=== PATIENT | male | born 1960 | race Caucasian/White ===

== ENCOUNTER 2023-11-16 08:28 | Outpatient (RCR) | payer SELFPAY | END 2023-11-16 23:59 | disposition home or self-care (01) | LOC: ROT 08:28 | PROVIDERS: ATTENDING PHYSICIAN Internal Medicine | DX: G20.C Parkinsonism, unspecified (principal); Z73.6 Limitation of activities due to disability ==

== ENCOUNTER → 2024-04-05 12:00 | Outpatient (REF) | payer OTHER, SELFPAY | LOC: DHSLP 12:00 | PROVIDERS: ATTENDING PHYSICIAN Internal Medicine | DX: G47.00 Insomnia, unspecified (principal); R06.83 Snoring | CPT/HCPCS: 95800 ==

== ENCOUNTER 2024-05-04 22:12 | Observation (INO) | payer OTHER, SELFPAY ==
[2024-05-04 18:53] VITALS: BP 146/87
[2024-05-04 19:40] LABS: % Basophils 0.3 % (0-2); % Eosinophils 0.2 % (0-6); % Immature Granulocytes 0.5 % (0-0.5); % Lymphocytes 4.9 % (20.5-51.1); % Neutrophils 88.1 % (42.2-75.2); Absolute Lymphocytes 0.3 10^3/uL (1.2-3.4); Absolute Monocytes 0.4 10^3/uL (0.1-0.6); Absolute Neutrophils 5.3 10^3/uL (1.4-6.5); Hematocrit 36.7 % (39.0-52.0); Hemoglobin 13.1 g/dL (13.0-18.0); Mean Corp Hgb Conc. 35.7 g/dL (33.0-37.0); Mean Corpuscular Hgb 28.9 pg (27.0-31.0); Mean Corpuscular Volume 80.8 fL (80.0-94.0); Mean Platelet Volume 9.1 fL (7.4-10.4); Nucleated Red Blood Cells % 0 % (-); Platelet Count 192 10^3/uL (130-400); Red Blood Cell Count 4.54 10^6/uL (4.70-6.10)
[2024-05-04 20:02] LABS: ALT (SGPT) < 10 U/L (0-50); AST (SGOT) 29 U/L (17-59); Albumin 4.1 g/dl (3.5-5.0); Alkaline Phosphatase 98 U/L (38-126); Blood Urea Nitrogen 10 mg/dl (9-20); Calcium 8.8 mg/dl (8.4-10.2); Carbon Dioxide 24 mmol/L (22-30); Chloride 93 mmol/L (98-107); Glucose 125 mg/dl (70-99); Lipase 33 U/L (23-300); Sodium 125 mmol/L (135-145); Total Bilirubin 0.7 mg/dl (0.2-1.3); Total Protein 6.3 g/dl (6.3-8.2); eGFR > 60.00
--- NOTE | 2024-05-04 20:22 | ED.GENMED ---
History of Present Illness
General
Chief Complaint: Abdominal Symptoms
Source: patient
Exam Limitations: none
Time Seen by Provider: 05/04/24 20:01
History of Present Illness
History of Present Illness:
This is a 64 year old male that comes in with c/o abd virus. States that he started on Wednesday night with nausea. States that yesterday he was able to keep some juice and water down. Today he had a 1/2 of toast and water and after lunch he started
with dry heaves. States that he was unable to keep his Sinemet down. States that he had a fever of 101 yesterday, headache and lightheadedness. States that his abd is sore from the dry heaves. Denies any chills, chest pain, SOB, diarrhea, vomiting,
urinary burning.
Past History
Past History
ED Past Medical History: GERD, HTN, Psychiatric (Anxiety) and Other (constipation, Parkinson's DJD, Tremors)
ED Past Surgical History: Appendectomy and Other (Dental implants)
Social History
Tobacco: Former smoker
Alcohol: None
Drug: None
Personal:
Living: with family
Employment: Employed
Family History
Family History: Diabetes
Review of Systems
Review of Systems
All Other Systems: ROS reviewed and negative except as documented in HPI and ROS
Constitutional: Reports fever; Denies chills
EENT: Reports no symptoms
Respiratory: Reports no symptoms; Denies cough or trouble breathing
Cardiac: Reports no symptoms; Denies chest pain
ABD/GI: Reports abdominal pain (Soreness), nausea and vomiting (Dry heaves); Denies diarrhea
: Reports no symptoms; Denies dysuria, frequency or urgency
Musculoskeletal: Reports no symptoms
Skin: Reports no symptoms
Neurological: Reports headache and other (Lightheaded); Denies dizzy
Psychiatric: Reports no symptoms
Phy Exam
General Physical Exam
General Presentation: no apparent distress
General age: appears stated age
General Skin: warm and dry
General Habitus: elderly
General Mental: alert
General Hydration: appears well hydrated
ENT Exam
ENT Exam: TM's normal, pharynx normal and neck supple
Eye Exam
Eye Exam: EOMI
Cardiovascular Exam
Cardiovascular Exam: regular rate/rhythm, no edema and normal peripheral pulses
Pulmonary Exam
Pulmonary Exam: lungs clear, no respiratory distress, no rales, chest non tender, no crackles, no rhonchi, no wheezing and no cough
Gastrointestinal Exam
Gastrointestinal Exam: non tender, soft, no organomegaly, no pulsatile mass, non distended and other (Hypoactive bowel sound)
Musculoskeletal Exam
Musculoskeletal Exam: full ROM and no edema
Skin Exam
Skin Exam: normal color, warm/dry, no rash and no petechia
Psychiatric Exam
Psychiatric Exam: normal mood/affect
Course
Orders/Labs/Results
Orders:
Orders
05/04/24 19:35
Complete Blood Count/With Diff Urgent
Comprehensive Metabolic Panel Urgent
Lipase Urgent
05/04/24 20:20
0.9% Sodium Chloride 1000 ml [Nss] 1,000 ml IV BOLUS
Ondansetron Injectable [Zofran] 4 mg IV NOW STA
05/04/24 20:21
Electrocardiogram (*1) Urgent
Reason for Study: QTc Monitoring
EKG- Treatment ONCE
Carbidopa/Levodopa [Sinemet 25-100] 1 tablet PO NOW STA
05/04/24 20:24
COVID-19 Antigen Urgent
Source: Nasal Swab
05/04/24 20:52
Lorazepam [Ativan] 1 mg .ROUTE .STK-MED ONE
05/04/24 20:54
Lorazepam [Ativan] 1 mg PO NOW STA
Abnormal Lab Results
05/04/24
19:35
RBC 4.54 L 10^6/uL
(4.70-6.10)
Hct 36.7 L %
(39.0-52.0)
Absolute Lymphs (auto) 0.3 L 10^3/uL
(1.2-3.4)
Neutrophils % 88.1 H %
(42.2-75.2)
Lymphocytes % 4.9 L %
(20.5-51.1)
Sodium 125 L mmol/L
(135-145)
Chloride 93 L mmol/L
(98-107)
Glucose 125 H mg/dl
(70-99)
05/04/24 19:35
05/04/24 19:35
Hyponatremia, Chloride low. Hyperglycemia, Lipase normal at 33
Vital Signs
Initial and Last Documented VS:
Initial Vital Signs
Temp Pulse Resp BP Pulse Ox
98.1 F 91 16 146/87 97
05/04/24 18:53 05/04/24 18:53 05/04/24 18:53 05/04/24 18:53 05/04/24 18:53
Last Documented Vital Signs
Temp Pulse Resp BP Pulse Ox
98.1 F 91 16 146/87 97
05/04/24 18:53 05/04/24 18:53 05/04/24 18:53 05/04/24 18:53 05/04/24 18:53
MDM/Problems Addressed
Differential Diagnosis Includes:
Viral syndrome. COVID,
MDM/Problems Addressed:
This is a 64 year old male that comes in with c/o nausea and dry heaves. States that this started on Wednesday and he was able to keep liquids down yesterday. Today he had dry heaves and they would come back up. States that he was unable to keep his
Sinemet down. States that he has a headache with the nausea and that he had a fever yesterday. states that she also had this virus over the weekend.
Will check labs. Give IV fluids and me medicate for nausea.
back into see patient. Explained that his Sodium is very low. Explained that it would be better if patient stayed in the hospital so his sodium can be addressed and patient is able to take his medication. Hospitalist notified.
Chronic conditions affecting care:
Parkinson's
Acute Exacerbation and/or Progression of Chronic Illness:
NA
*Pulse Oximetry
Patient hypoxic: no
*EKG
Interpreted by ED Provider?: Yes
Heart Rate: 81
Rate: normal
Rhythm: sinus
[place]: left axis deviation
Interval: normal interval
QRS Pattern: right bundle branch block
Ischemia: T-wave inversion (III, aVR, aVF, V1, V2, V3, )
*Senior Budget Analyst Interpretation
Rate: Senior Budget Analyst- N/A
*Critical Care Note
Total Time (30-74mins, 75-104mins- exclusive of procedures): Not Applicable
ED Attending Note
-
Portions of this chart may have been created with voice recognition software.� Occasional wrong word or��sound alike� substitutions may have occurred due to the inherent limitations of voice recognition software.
Discharge Plan
Departure
Patient Disposition: Admit
Date of Disposition: 05/04/24
Time of Disposition: 21:29
Admit to: Med/Surg
Presentation/result/management discussed w/ accepting MD/DO: Hospitalist
Patient with high blood pressure during this ER visit?: Yes
Condition: Good
Discharge Problem:
Acute hyponatremia, Nausea & vomiting
Prescriptions:
No Action
Saline Nasal 50 SPRAYS/45 ML aerosol,spray
2 sprays intranasal QIDPRN PRN (Reason: dryness)
Benefiber Sugar Free (dextrin) 1 EACH powder in packet
1 ea PO DAILY
atorvastatin [Lipitor] 10 MG tablet
10 mg PO DAILY
amlodipine 5 MG tablet
5 mg PO DAILY
escitalopram oxalate 10 MG tablet
20 mg PO DAILY
aspirin 500 mg Tablet
1,000 mg PO Q6H
trazodone 100 mg Tablet
100 mg PO HS
candesartan 32 mg Tablet
32 mg PO DAILY
omeprazole [Prilosec] 20 mg Capsule,Delayed Release(Dr/Ec)
20 mg PO DAILY
lorazepam 1 mg Tablet
1 mg PO HS PRN (Reason: anxiety, trmors, muscle spasms)
carbidopa-levodopa [Sinemet] 25-100 mg Tablet
1 tab PO Q3
carbidopa-levodopa [Sinemet] 25-100 mg Tablet
1.5 tab PO HS
Patient Comments:
Boosted dose 1.5 tab at night time
ezetimibe [Zetia] 10 mg Tablet
10 mg PO DAILY
Inbrija 42 mg Capsule
84 mg INHALATION DAILY PRN (Reason: parkinson's )
Referrals:
Andreas Hancock DO [Family Provider] -
Interventions
Interventions:
*Risk Screen - Suicide Last Done: 05/04/24 20:11
*Neglect/Abuse Screening Last Done: 05/04/24 20:11
*ED COVID-19 Vaccine History Last Done: 05/04/24 20:11
Discharge Date and Time
Print Language: UZBEK
[2024-05-04] MEDS: ZOFRAN 4 MG IV (21:04)
[2024-05-04] MEDS: NSS 1000 IV (21:05)
[2024-05-04] MEDS: ATIVAN 1 MG PO (21:35)
[2024-05-04 21:40] VITALS: BP 167/90
--- NOTE | 2024-05-04 21:51 | HPS.HSE ---
Family Physician
-
Family Physician: Andreas Hancock
Chief Complaint
-
nausea, vomiting
History of Present Illness
64-year-old male past medical history of Parkinson's disease, hypertension, GERD, anxiety, hyperlipidemia presenting with nausea. He started having nausea 2 nights ago. Yesterday he was able to keep some juice and water down. Today he had some
toast and after started having a little vomiting/dry heaving. He was unable to take Sinemet. He had chills yesterday with headache, lightheadedness. He denies any diarrhea. He has abdominal soreness from dry heaving but denies any pain. He
denies any chest pain, shortness of breath, urinary symptoms.
His had similar symptoms this past Wednesday which resolved by Wednesday. Patient denies eating any restaurants, any suspicious foods recently.
He denies smoking or alcohol use.
Medical History
Past Medical History
Past Medical History: Reports Other ( Parkinson's disease, hypertension, GERD, anxiety, hyperlipidemia)
Past Surgical History: Reports None
Social History
Tobacco: Non-smoker
Alcohol: None
Drug: None
Family History
Family History: Not pertinent
Allergies / Home Medications
Allergies reflects when Allergies were last updated in [facility].
Home Medications with original date entered in [facility]
Allergy/Medication List:
Allergies
Allergy/AdvReac Type Severity Reaction Status Date / Time
No Known Allergies Allergy Verified 02/20/23 22:29
Home Medications
wheat dextrin 3 gram/4 gram oral powder packet (Benefiber Sugar Free (dextrin)) 1 ea PO DAILY 01/19/19
amlodipine 5 mg tablet 5 mg PO DAILY 08/20/19
atorvastatin 10 mg tablet (Lipitor) 10 mg PO DAILY 08/20/19
aspirin 500 mg tablet 1,000 mg PO TIDPRN PRN mild pain 05/04/24
candesartan 32 mg tablet 32 mg PO DAILY 05/04/24
carbidopa 25 mg-levodopa 100 mg tablet (Sinemet) 1 tab PO Q3H 05/04/24
carbidopa 25 mg-levodopa 100 mg tablet (Sinemet) 1.5 tab PO HS 05/04/24
escitalopram oxalate 20 mg tablet 20 mg PO DAILY 05/04/24
ezetimibe 10 mg tablet (Zetia) 10 mg PO DAILY 05/04/24
fluticasone propionate 50 mcg/actuation nasal spray,suspension 1 spray intranasal DAILY 05/04/24
levodopa 42 mg capsules for inhalation (Inbrija) 84 mg inhalation R BIDPRN PRN parkinson's 05/04/24
lorazepam 1 mg tablet 1 mg PO BIDPRN PRN anxiety 05/04/24
lorazepam 1 mg tablet 1 mg PO HS anxiety, trmors, muscle spasms 05/04/24
nebivolol 5 mg tablet 5 mg PO DAILY 05/04/24
omeprazole 20 mg capsule,delayed release 20 mg PO DAILY 05/04/24
trazodone 100 mg tablet 100 mg PO HS 05/04/24
Review of Systems
-
History Source: Patient
A 12 point ROS was completed and negative except as noted: Yes
Constitutional: Reports No Symptoms
EENT: Reports No Symptoms
Respiratory: Reports No Symptoms
Cardiac: Reports No Symptoms
Abdomen/GI: Reports No Symptoms
: Reports No Symptoms
Musculoskeletal: Reports No Symptoms
Skin: Reports No Symptoms
Neurological: Reports No Symptoms
Endocrine: Reports No Symptoms
Hematologic/Lymphatic: Reports No Symptoms
Psych: Reports No Symptoms
Physical Exam
Vital Signs
Vital Signs
Temp Pulse Resp BP Pulse Ox
98.1 F 88 20 167/90 98
05/04/24 18:53 05/04/24 21:40 05/04/24 21:40 05/04/24 21:40 05/04/24 21:40
Physical Exam
General: Well Developed, Well Nourished and No Apparent Distress
HEENT: NormoCephalic, Moist mucous membranes and Atraumatic
Respiratory: Clear
Cardiac: S1/S2 and Regular Rhythm; No Murmur or Rub
GI: Soft, Non Tender, Non Distended and Normal Bowel Sounds; No Organomegaly
Rectal: Deferred by Provider
Musculoskeletal: No Clubbing, No Cyanosis and No Edema
Skin: No Rash
Neuro: Nonfocal/grossly intact
Laboratory Results
-
05/04/24 19:35
05/04/24 19:35
Laboratory Results
Total Bilirubin 0.7 mg/dl (0.2-1.3) 05/04/24 19:35
AST 29 U/L (17-59) 05/04/24 19:35
ALT < 10 U/L (0-50) 05/04/24 19:35
Alkaline Phosphatase 98 U/L (38-126) 05/04/24 19:35
Lipase 33 U/L (23-300) 05/04/24 19:35
Data Reviewed
-
Lab Data: Labs Reviewed by me
Old Records: Reviewed
Impression/Plan
-
IMPRESSION:
PLAN:
# Food poisoning/acute gastroenteritis
-No diarrhea
-N.p.o.
-IV fluids
-Advance diet tomorrow
# Worsening of chronic hyponatremia secondary to GI losses/poor p.o. intake
-Sodium 125 from 128 previously
-Monitor with IV fluids
Parkinson's disease
-Continue carbidopa levodopa
Essential hypertension
- continue amlodipine
-Continue candesartan
-Continue nebivolol
GERD
-Continue omeprazole
Anxiety
-Continue Lexapro
Hyperlipidemia
-Continue statin, Zetia, lorazepam
Insomnia
-Continue trazodone
Full code
DVT prophylaxis�heparin
N.p.o.
[2024-05-04 22:01] LABS: COVID-19 Antigen Negative (Negative)
[2024-05-04] MEDS: NORVASC 5 MG PO (22:35)
[2024-05-04] MEDS: BYSTOLIC 5 MG PO (22:36)
[2024-05-04 23:20] VITALS: BMI 30.9
[2024-05-04 23:25] VITALS: BP 142/86
[2024-05-05] MEDS: NSS 1000 IV (00:13)
[2024-05-05] MEDS: ATIVAN 1 MG PO (00:22)
[2024-05-05] MEDS: SINEMET 25-100 1 TABLET PO ×4 (00:22→09:10)
[2024-05-05] MEDS: DESYREL 100 MG PO (00:22)
[2024-05-05] MEDS: SINEMET 25-100 0.5 TABLET PO (00:23)
--- NOTE | 2024-05-05 04:22 | TRANSFER ---
Pt admitted to the unit from ED. Pt ambulated self to bed. AAXO3. Pt denies nausea. VSS. Pt oriented to room with call garcia in reach. Plan of care ongoing.
[2024-05-05 04:28] VITALS: BMI 30.9
[2024-05-05 07:00] VITALS: BP 141/80
--- NOTE | 2024-05-05 08:54 | W.PN.HOSP.TC ---
Today's Communication/Plan
-
Discharge today
Assessment / Plan
Assessment / Plan
HPI: 64-year-old male past medical history of Parkinson's disease, hypertension, GERD, anxiety, hyperlipidemia presenting with nausea. He started having nausea 2 nights ago. Yesterday he was able to keep some juice and water down. Today he had
some toast and after started having a little vomiting/dry heaving. He was unable to take Sinemet. He had chills yesterday with headache, lightheadedness. He denies any diarrhea. He has abdominal soreness from dry heaving but denies any pain. He
denies any chest pain, shortness of breath, urinary symptoms.
His had similar symptoms this past Wednesday which resolved by Wednesday. Patient denies eating any restaurants, any suspicious foods recently.
He denies smoking or alcohol use.
# Food poisoning/acute gastroenteritis
Nausea resolved, tolerating his medications and liquids
Will discharge per patient request
# Worsening of chronic hyponatremia secondary to GI losses/poor p.o. intake
Much improved with IV fluids
Sodium 134 today, was 125 from admission
Parkinson's disease
-Continue carbidopa levodopa
Essential hypertension
- continue amlodipine
-Continue candesartan
-Continue nebivolol
GERD
-Continue omeprazole
Anxiety
-Continue Lexapro
Hyperlipidemia
-Continue statin, Zetia, lorazepam
Insomnia
-Continue trazodone
DVT prophylaxis�subcu heparin
Full code
Physical Exam
General: No acute distress
HEENT: Normocephalic, Atraumatic, EOMI, MMM
Respiratory: Clear to Auscultation bilaterally
Cardiac: Normal S1/S2, Regular Rate and Rhythm
GI: Soft, Nontender, Nondistended, Normal Bowel Sounds
Extremities: No Clubbing, Cyanosis, or Edema
Neuro: Resting tremor noted
Psych: Calm, Cooperative
Anticipated Discharge: Today
Subjective/Interval History
-
Date of Service: May 05, 2024
Nausea resolved. Patient is tolerating liquids and his pills. He is asking to go home.
Objective Data
-
Labs:
Laboratory Results
05/05/24
06:00
WBC Pending
Hgb Pending
Hct Pending
Plt Count Pending
Sodium Pending
Potassium Pending
Chloride Pending
Carbon Dioxide Pending
BUN Pending
Creatinine Pending
Glucose Pending
Calcium Pending
Total Bilirubin Pending
AST Pending
ALT Pending
Alkaline Phosphatase Pending
Vital Signs:
Vital Signs
Temp Pulse Resp BP Pulse Ox
97.7 F 86 20 142/86 98
05/04/24 23:25 05/04/24 23:25 05/04/24 23:25 05/04/24 23:25 05/04/24 23:28
I&O
05/04/24 05/05/24 05/06/24
06:59 06:59 06:59
Output Total 900 / 900
Balance -900 / -900
[2024-05-05] MEDS: ATACAND 32 MG PO (09:09)
[2024-05-05] MEDS: ZETIA 10 MG PO (09:10)
[2024-05-05] MEDS: LIPITOR 10 MG PO (09:10)
[2024-05-05 09:31] LABS: % Basophils 0.6 % (0-2); % Eosinophils 0.6 % (0-6); % Immature Granulocytes 0.9 % (0-0.5); % Lymphocytes 20.4 % (20.5-51.1); % Neutrophils 66.5 % (42.2-75.2); Absolute Lymphocytes 0.7 10^3/uL (1.2-3.4); Absolute Monocytes 0.4 10^3/uL (0.1-0.6); Absolute Neutrophils 2.1 10^3/uL (1.4-6.5); Hematocrit 35.2 % (39.0-52.0); Hemoglobin 12.4 g/dL (13.0-18.0); Mean Corp Hgb Conc. 35.2 g/dL (33.0-37.0); Mean Corpuscular Hgb 28.7 pg (27.0-31.0); Mean Corpuscular Volume 81.5 fL (80.0-94.0); Mean Platelet Volume 9.3 fL (7.4-10.4); Nucleated Red Blood Cells % 0 % (-); Platelet Count 180 10^3/uL (130-400); Red Blood Cell Count 4.32 10^6/uL (4.70-6.10); Red Cell Dist. Width 12.1 % (11.5-14.5); White Blood Cell Count 3.2 10^3/uL (4.8-10.8)
[2024-05-05] MEDS: METAMUCIL, KONSYL 1 PACKET PO (09:49)
[2024-05-05 10:00] LABS: ALT (SGPT) < 10 U/L (0-50); AST (SGOT) 40 U/L (17-59); Albumin 3.6 g/dl (3.5-5.0); Alkaline Phosphatase 91 U/L (38-126); Blood Urea Nitrogen 9 mg/dl (9-20); Calcium 8.7 mg/dl (8.4-10.2); Carbon Dioxide 25 mmol/L (22-30); Chloride 102 mmol/L (98-107); Estimated Creatinine Clearance 97 ml/min; Glucose 92 mg/dl (70-99); Potassium 4.2 mmol/L (3.5-5.1); Sodium 134 mmol/L (135-145); Total Bilirubin 0.5 mg/dl (0.2-1.3); Total Protein 5.7 g/dl (6.3-8.2); eGFR > 60.00
[2024-05-05] MEDS: LEXAPRO 20 MG PO (10:03)
--- NOTE | 2024-05-05 10:25 | W.DCSUMMARY ---
Discharge Summary
Discharge Data
Date of Admission: 05/04/24
Date of Discharge: 05/05/24
-
Pending Results: No
Hospital Course
Discharge diagnosis:
Acute gastroenteritis
Intractable nausea
Acute on chronic hyponatremia
Parkinson's disease
Benign essential hypertension
Gastroesophageal reflux disease
Anxiety
Hospital course:
64-year-old male with a past medical history of Parkinson's disease, hypertension, GERD, anxiety, and hyperlipidemia was admitted for intractable nausea and vomiting secondary to probable acute viral gastroenteritis. Patient and his have been
having the same symptoms. Patient was treated with supportive care, antiemetics, and IVF. By the following day, his nausea and vomiting resolved. He tolerated liquids and his medications. He requested discharge.
Patient also had acute on chronic hyponatremia. His sodium dipped to 125. This is likely due to dehydration from GI losses. His sodium improved to 134 on the day of discharge with IV fluids.
Patient is medically stable for discharge. He needs to follow-up with his primary care doctor in 1 week.
Disposition: Home self-care
Discharge planning: Required 33 minutes
Discharge Plan
-
Patient Disposition: Home (Routine Discharge)
Discharge Diagnosis/Procedures: Acute gastroenteritis
Condition: Good
Diet: Regular
Activity: As tolerated
Driving Restrictions: As prior to admission
Referrals:
Andreas Hancock DO [Family Provider] - in one week
Prescriptions:
New
ondansetron 4 mg tablet,disintegrating
4 mg PO Q6H PRN (Reason: nausea and vomiting) Qty: 30 0RF
Continued
Benefiber Sugar Free (dextrin) 1 EACH powder in packet
1 ea PO DAILY
atorvastatin [Lipitor] 10 MG tablet
10 mg PO DAILY
amlodipine 5 MG tablet
5 mg PO DAILY
aspirin 500 mg Tablet
1,000 mg PO TIDPRN PRN (Reason: mild pain)
trazodone 100 mg Tablet
100 mg PO HS
candesartan 32 mg Tablet
32 mg PO DAILY
omeprazole 20 mg Capsule,Delayed Release(Dr/Ec)
20 mg PO DAILY
lorazepam 1 mg Tablet
1 mg PO HS
carbidopa-levodopa [Sinemet] 25-100 mg Tablet
1 tab PO Q3H
carbidopa-levodopa [Sinemet] 25-100 mg Tablet
1.5 tab PO HS
ezetimibe [Zetia] 10 mg Tablet
10 mg PO DAILY
Inbrija 42 mg Capsule
84 mg INHALATION R BIDPRN PRN (Reason: parkinson's )
lorazepam 1 mg Tablet
1 mg PO BIDPRN PRN (Reason: anxiety)
fluticasone propionate 50 mcg/actuation [place],Suspension
1 spray INTRANASAL DAILY
escitalopram oxalate 20 mg Tablet
20 mg PO DAILY
nebivolol 5 mg Tablet
5 mg PO DAILY
Discharge Orders:
Discharge Patient (As Directed); Ordered 05/05/24
Ordered By: Tr Vuong
Discharge Date and Time
Discharge Date/Time: 05/05/24 12:41
Print Language: SURINAMESE
[2024-05-05 10:44] LABS: Hepatitis C Antibody Negative (Negative)
[2024-05-05 11:00] VITALS: BP 140/83
--- NOTE | 2024-05-05 11:52 | CM ---
canteen manager reviewed patient's chart and met with patient and patient was admitted under OBS, TSE letter explained and signed. Patient lives with spouse in a 2 story home is independent with adl's and ambulation, patient has a cane that he does
not use.
PCP: Dr Hancock
Pharmacy: [facility].
Plan; Home today spouse to transport.
== END 2024-05-05 12:41 | disposition home or self-care (01) ==
LOC: 4 WEST ACU 22:12
PROVIDERS: Clinical Nurse Specialist Family Health; Emergency Medicine; ADMITTING PHYSICIAN Hospitalist; ATTENDING PHYSICIAN Family Medicine; EMERGENCY PHYSICIAN Emergency Medicine; FAMILY PHYSICIAN Internal Medicine
DX: R11.2 Nausea with vomiting, unspecified (principal); R10.9 Unspecified abdominal pain; R50.9 Fever, unspecified; R42 Dizziness and giddiness; R51.9 Headache, unspecified; G20.A1 Parkinson's disease without dyskinesia, without mention of fluctuations; I10 Essential (primary) hypertension; F41.9 Anxiety disorder, unspecified; K21.9 Gastro-esophageal reflux disease without esophagitis; Z90.49 Acquired absence of other specified parts of digestive tract; E87.1 Hypo-osmolality and hyponatremia; R73.9 Hyperglycemia, unspecified; E78.5 Hyperlipidemia, unspecified; G47.00 Insomnia, unspecified; Z87.891 Personal history of nicotine dependence; Z83.3 Family history of diabetes mellitus
CPT/HCPCS: 80053; 83690; 85025; 86803; 87811; 93005; 96361; 96374; 99284; G0378

== ENCOUNTER 2025-02-18 02:41 | Emergency (ER) | payer OTHER, SELFPAY ==
[2025-02-18 02:45] VITALS: BP 134/80
--- NOTE | 2025-02-18 06:22 | ED.GENMED ---
History of Present Illness
General
Chief Complaint: Bowel Problem
Source: patient
Exam Limitations: none
Time Seen by Provider: 02/18/25 05:58
History of Present Illness
History of Present Illness:
64yoM with a history of Parkinson's and hypertension presenting with his for evaluation of constipation. He typically has a bowel movement every day but has not had a bowel movement in the past 4 days. He has tried glycerine suppositories
without relief. Patient came in with rectal discomfort and difficulty urinating. He denies any abdominal pain, rectal bleeding, vomiting. Previous abdominal surgeries include an appendectomy. Last colonoscopy was about 3 to 4 years ago which was
reportedly normal.
Past History
Past History
ED Past Medical History: GERD, HTN, Psychiatric (Anxiety) and Other (constipation, Parkinson's DJD, Tremors)
ED Past Surgical History: Appendectomy and Other (Dental implants)
Social History
Tobacco: Former smoker
Alcohol: None
Drug: None
Personal:
Living: with family
Employment: Employed
Family History
Family History: Diabetes
Phy Exam
General Physical Exam
General Presentation: well appearing and no apparent distress
General Skin: warm and dry
General Habitus: normal
General Mental: alert
ENT Exam
ENT Exam: normocephalic
Pulmonary Exam
Pulmonary Exam: no respiratory distress
Gastrointestinal Exam
Gastrointestinal Exam: non tender, soft and non distended
Neurological Exam
Neurological Exam: alert
Mariah Coma Scale
Eye Opening: Spontaneous
Verbal Response: Oriented
Motor Response: Obeys Commands
GCS Total Score: 15
Skin Exam
Skin Exam: normal color and warm/dry
Psychiatric Exam
Psychiatric Exam: normal mood/affect
Course
Vital Signs
Initial and Last Documented VS:
Initial Vital Signs
Temp Pulse Resp BP Pulse Ox
98.1 F 80 24 134/80 97
02/18/25 02:45 02/18/25 02:45 02/18/25 02:45 02/18/25 02:45 02/18/25 02:45
Last Documented Vital Signs
Temp Pulse Resp BP Pulse Ox
98.1 F 80 24 134/80 97
02/18/25 02:45 02/18/25 02:45 02/18/25 02:45 02/18/25 02:45 02/18/25 02:45
MDM/Problems Addressed
Differential Diagnosis Includes:
64yoM here with constipation. No BM in 4 days. No relief with OTC medications. Denies abd pain or vomiting. VSS. Patient given milk of molasses enema by nursing staff prior to initial exam. Patient was able to have a large bowel movement and is now
feeling significantly improved. Abdominal exam is benign. No signs of acute surgical process. He is stable for discharge. Supportive care discussed including Miralax. Advised f/u with PCP and ED return precautions reviewed. Patient discharged in
stable condition.
*Critical Care Note
Total Time (30-74mins, 75-104mins- exclusive of procedures): Not Applicable
ED Attending Note
-
Portions of this chart may have been created with voice recognition software.� Occasional wrong word or��sound alike� substitutions may have occurred due to the inherent limitations of voice recognition software.
Discharge Plan
Departure
Patient Disposition: Home (Routine Discharge)
Date of Disposition: 02/18/25
Time of Disposition: :
Patient with high blood pressure during this ER visit?: No
Discharge Problem:
Constipation
Instructions: Constipation, Adult (DC)
Prescriptions:
No Action
Benefiber Sugar Free (dextrin) 1 EACH powder in packet
1 ea PO DAILY
atorvastatin [Lipitor] 10 MG tablet
10 mg PO DAILY
amlodipine 5 MG tablet
5 mg PO DAILY
aspirin 500 mg Tablet
1,000 mg PO TIDPRN PRN (Reason: mild pain)
trazodone 100 mg Tablet
100 mg PO HS
candesartan 32 mg Tablet
32 mg PO DAILY
omeprazole 20 mg Capsule,Delayed Release(Dr/Ec)
20 mg PO DAILY
lorazepam 1 mg Tablet
1 mg PO HS
carbidopa-levodopa [Sinemet] 25-100 mg Tablet
1 tab PO Q3H
carbidopa-levodopa [Sinemet] 25-100 mg Tablet
1.5 tab PO HS
ezetimibe [Zetia] 10 mg Tablet
10 mg PO DAILY
Inbrija 42 mg Capsule
84 mg INHALATION R BIDPRN PRN (Reason: parkinson's )
lorazepam 1 mg Tablet
1 mg PO BIDPRN PRN (Reason: anxiety)
fluticasone propionate 50 mcg/actuation [place],Suspension
1 spray INTRANASAL DAILY
escitalopram oxalate 20 mg Tablet
20 mg PO DAILY
nebivolol 5 mg Tablet
5 mg PO DAILY
ondansetron 4 mg tablet,disintegrating
4 mg PO Q6H PRN (Reason: nausea and vomiting) Qty: 30 0RF
Referrals:
Andreas Hancock DO [Family Provider, Internal Medicine]
Activity Restrictions/Additional Instructions:
Take Miralax daily as needed until bowel movements regulate.
Please follow-up with your family doctor. Return to the ER with any new or worsening symptoms.
Interventions
Interventions:
*Risk Screen - Suicide Last Done: 02/18/25 02:45
*General Assessment Last Done: 02/18/25 04:23
*Neglect/Abuse Screening Last Done: 02/18/25 02:45
*ED- Fall Risk Assessment Last Done: 02/18/25 04:23
*ED COVID-19 Vaccine History Last Done: 02/18/25 04:23
*Nursing Disposition Last Done: 02/18/25 07:00
TZ-Prrhnd-Hwirxgepur Assessment Last Done: 02/18/25 04:23
Discharge Date and Time
Discharge Date/Time: 02/18/25 07:00
Print Language: HUNGARIAN
== END 2025-02-18 07:00 | disposition home or self-care (01) ==
LOC: EMR 02:41
PROVIDERS: EMERGENCY PHYSICIAN Emergency Medicine; FAMILY PHYSICIAN Internal Medicine
DX: K59.00 Constipation, unspecified (principal); G20.A1 Parkinson's disease without dyskinesia, without mention of fluctuations; I10 Essential (primary) hypertension; K21.9 Gastro-esophageal reflux disease without esophagitis; F41.9 Anxiety disorder, unspecified; M19.90 Unspecified osteoarthritis, unspecified site; Z87.891 Personal history of nicotine dependence; Z79.82 Long term (current) use of aspirin
CPT/HCPCS: 99282